=== PATIENT | female | born 1965 | race Caucasian/White ===

== ENCOUNTER 2018-08-29 22:38 | Emergency (ER) | payer OTHER ==
[~2018-08-29] VITALS: Ht 167.6 cm; Wt 112.5 kg
[2018-08-29 22:43] VITALS: BP 133/85
[2018-08-29] MEDS ORDERED: Methocarbamol 750mg tab ORAL ONE (23:15)
[2018-08-29] MEDS ORDERED: ROBAXIN-750750 MG PO (23:46)
[2018-08-29] MEDS ORDERED: IBUPROFEN600 MG ORAL (23:46)
[2018-08-29] MEDS ORDERED: LIDODERM700 M1 TOPIC (23:46)
[2018-08-29 23:52] VITALS: BP 133/85
--- NOTE | 2018-08-30 00:20 | Emergency Room Report ---
History of Present Illness General Chief Complaint: Lower Back Pain or Injury Source: Patient Present Illness HPI 52-year-old female resents ED for evaluation. Complaining of lower back pain started tonight at work while lifting heavy objects. [place] a "pop" in her lower back. Pain is dull, 8 out of 10, nonradiating. Denies any bowel or bladder incontinence. Denies any leg or motor weakness. Denies any other injuries. No other aggravating relieving factors. Denies any other associated symptoms Allergies: Coded Allergies: ACETAMINOPHEN (Verified Allergy, Severe, 08/29/18) HYDROCODONE (Verified Allergy, Severe, 08/29/18) Uncoded Allergies: SHELLFISH (Allergy, Severe, 08/29/18) Patient History Past Medical History: DM, CVA/TIA Past Surgical History: none Pertinent Family History: none Social History: Denies: smoking, alcohol use, drug use Last Menstrual Period: 6 months ago Now: No Immunizations: UTD Reviewed Nursing Documentation: PMH: Agreed; PSxH: Agreed Nursing Documentation-PMH Hx Cardiac Problems: Yes - TIA in 2013, 2014. PFA closer in Oct 2013 Hx Diabetes: Yes - Prediabetic Review of Systems All Other Systems: negative except mentioned in HPI Physical Exam Vital Signs Date Time Temp Pulse Resp B/P (MAP) Pulse Ox O2 Delivery O2 Flow Rate FiO2 08/29/18 22:41 98.6 89 20 133/85 97 Room Air 98.6 Sp02 EP Interpretation: reviewed, normal General Appearance: no apparent distress, alert, GCS 15, non-toxic Head: normocephalic Eyes: bilateral eye normal inspection, bilateral eye PERRL ENT: normal ENT inspection Neck: full range of motion Respiratory: normal inspection Cardiovascular #1: normal inspection Gastrointestinal: normal inspection Rectal: deferred Genitourinary: no vertebral tenderness Musculoskeletal: tender - paraspinal lumbar tenderness Neurologic: alert, oriented x3, responsive, motor strength/tone normal, sensory intact, speech normal Psychiatric: normal inspection Skin: normal inspection Lymphatic: normal inspection Medical Decision Making Diagnostic Impression: Primary Impression: Low back pain Qualified Codes: M54.5 - Low back pain ER Course Hospital Course 52-year-old female presents ED complaining of lower back pain after living heavy object Differential diagnoses include: pyelonephritis, kidney stone, muscle strain, Lspine fracture Clinical course Patient placed on stretcher. After initial history, physical exam reveals a middle-aged female in no acute distress. There is no vertebral body tenderness. There is some paraspinal lumbar tenderness. Negative straight leg raise. 5 out of 5 motor and both legs. No sensory deficits. I ordered motrin, robaxin, lidoderm patch for pain. Upon reassessment patient states pain has improved. Patient safely discharged with close outpatient follow-up. We'll recommend analgesic medication, modified activity at work Diagnosis - back pain Stable and discharged to home with prescription for motrin, robaxin, lidoderm patch. avoid heavy lifting. Followup with PMD. Return to ED if symptoms recur or worsen Last Vital Signs Date Time Temp Pulse Resp B/P (MAP) Pulse Ox O2 Delivery O2 Flow Rate FiO2 08/29/18 23:52 98.6 89 20 133/85 97 Room Air 98.6 Status: improved Disposition: HOME, SELF-CARE Condition: Stable Scripts Lidocaine (Lidoderm) 1 Each Adh..patch 1 PATCH TOPIC DAILY, #7 PATCH 0 Refills Patch(es) may remain in place for up to 12 hours in any 24-hour period. Prov: Abbe Spaulding MD 08/29/18 Methocarbamol* (ROBAXIN-750*) 750 Mg Tablet 750 MG PO TID, #21 TAB 0 Refills Prov: Abbe Spaulding MD 08/29/18 Ibuprofen* (MOTRIN*) 600 Mg Tablet 600 MG ORAL Q8H PRN for For Pain, #30 TAB 0 Refills Prov: Abbe Spaulding MD 08/29/18 Departure Forms: Return to Work Return to Work Date: Aug 31, 2018 Work Restrictions: No Heavy Lifting Patient Instructions: Lumbosacral Strain Abbe Spaulding MD Aug 30, 2018 00:20
== END 2018-08-29 23:57 | disposition home or self-care (01) ==
LOC: EMR 23:05
DX: M54.5 Low back pain (principal); R73.03 Prediabetes; Z86.73 Personal history of transient ischemic attack (TIA), and cerebral infarction without residual deficits; Z88.6 Allergy status to analgesic agent; Z91.013 Allergy to seafood
CPT/HCPCS: 99283

== ENCOUNTER 2019-05-14 14:04 | Emergency (ER) | payer MEDICAID, OTHER ==
[~2019-05-14] VITALS: Ht 167.6 cm; Wt 115.7 kg
[~2019-05-14 14:04] MED LIST: IBUPROFEN600 MG ORAL; LIDODERM700 M1 TOPIC; ROBAXIN-750750 MG PO
[2019-05-14] MEDS ORDERED: NKM (14:16)
--- NOTE | 2019-05-14 14:34 | Emergency Room Report ---
History of Present Illness General Chief Complaint: Generalized Weakness Source: Medical Record Present Illness HPI Patient is a 53-year-old female presented after increased generalized weakness for several months. Patient reports having generalized lethargy as well as increased difficulty with processing her thoughts. Patient states that she been having increased brain fogginess. She had prior history of CVA with resulting left-sided weakness. Patient is currently taking anticoagulant which she does not know. She denies any recent trauma. 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 She denies any difficulty with sleep. She denies any vomiting or diarrhea. She reports having some intermittent episodes of sweating. She states her last menses was approximately 6 months ago. Allergies: Coded Allergies: ACETAMINOPHEN (Verified Allergy, Severe, 08/29/18) HYDROCODONE (Verified Allergy, Severe, 08/29/18) Uncoded Allergies: SHELLFISH (Allergy, Severe, 08/29/18) Patient History Past Medical History: see triage record Last Menstrual Period: 09/21/18 Reviewed Nursing Documentation: PMH: Agreed; PSxH: Agreed Nursing Documentation-PMH Past Medical History: No History, Except For Hx Cardiac Problems: Yes - TIA in 2013, 2014. PFA closer in Oct 2013 Hx Diabetes: Yes - Prediabetic Review of Systems All Other Systems: negative except mentioned in HPI Physical Exam Vital Signs Date Time Temp Pulse Resp B/P (MAP) Pulse Ox O2 Delivery O2 Flow Rate FiO2 05/14/19 14:12 98.4 112 18 119/75 (90) 96 Room Air Sp02 EP Interpretation: reviewed, normal General Appearance: normal inspection, well appearing, no apparent distress, alert, GCS 15, obese Head: atraumatic ENT: normal ENT inspection, hearing grossly normal, normal voice Neck: normal inspection, full range of motion, supple, no bony tend Respiratory: normal inspection, lungs clear, normal breath sounds, no respiratory distress, no retraction, no wheezing Cardiovascular #1: regular rate, rhythm, edema - trace edema Gastrointestinal: normal inspection, normal bowel sounds, non tender, soft, no guarding, no hernia Genitourinary: no CVA tenderness Musculoskeletal: normal inspection, back normal, normal range of motion Neurologic: normal inspection, alert, oriented x3, responsive, vehicle insurance agent III-XII nml as tested, speech normal Psychiatric: normal inspection, judgement/insight normal, mood/affect normal Skin: normal color Medical Decision Making Diagnostic Impression: Primary Impression: Hyperglycemia Additional Impression: Episode of generalized weakness ER Course Patient presented for generalized weakness. Differential diagnosis include was not limited to elect light abnormality, hypothyroidism, congestive heart failure , myasthenia gravis among others. Because of complexity of patient's case laboratory tests were ordered.Patient's laboratory testing was unremarkable other than elevated blood sugar. Patient does not show any evidence of acute focal neurologic deficit. Patient has essentially a normal neurologic exam. patient advised dietary modification. She was advised to follow-up with her primary care physician for further evaluation and treatment. She is advised to return if she had any worsening of condition or other concerns. Patient was advised outpatient cardiac testing. Labs Test 05/14/19 14:45 White Blood Count 6.7 K/UL (4.8-10.8) Red Blood Count 5.05 M/UL (4.20-5.40) Hemoglobin 15.2 G/DL (12.0-16.0) Hematocrit 46.2 % (37.0-47.0) Mean Corpuscular Volume 92 FL (80-99) Mean Corpuscular Hemoglobin 30.0 PG (27.0-31.0) Mean Corpuscular Hemoglobin Concent 32.8 G/DL (32.0-36.0) Red Cell Distribution Width 12.2 % (11.6-14.8) Platelet Count 196 K/UL (150-450) Mean Platelet Volume 7.2 FL (6.5-10.1) Neutrophils (%) (Auto) 64.7 % (45.0-75.0) Lymphocytes (%) (Auto) 25.0 % (20.0-45.0) Monocytes (%) (Auto) 7.2 % (1.0-10.0) Eosinophils (%) (Auto) 1.7 % (0.0-3.0) Basophils (%) (Auto) 1.4 % (0.0-2.0) Sodium Level 141 MMOL/L (136-145) Potassium Level 3.7 MMOL/L (3.5-5.1) Chloride Level 105 MMOL/L (98-107) Carbon Dioxide Level 25 MMOL/L (21-32) Anion Gap 11 mmol/L (5-15) Blood Urea Nitrogen 12 mg/dL (7-18) Creatinine 0.8 MG/DL (0.55-1.30) Estimat Glomerular Filtration Rate > 60 mL/min (>60) Glucose Level 135 MG/DL (74-106) Calcium Level 9.8 MG/DL (8.5-10.1) Total Bilirubin 0.2 MG/DL (0.2-1.0) Aspartate Amino Transf (AST/SGOT) 14 U/L (15-37) Alanine Aminotransferase (ALT/SGPT) 26 U/L (12-78) Alkaline Phosphatase 75 U/L (46-116) Troponin I 0.000 ng/mL (0.000-0.056) Pro-B-Type Natriuretic Peptide 31 pg/mL (0-125) Total Protein 7.6 G/DL (6.4-8.2) Albumin 3.8 G/DL (3.4-5.0) Globulin 3.8 g/dL Albumin/Globulin Ratio 1.0 (1.0-2.7) Lipase 105 U/L (73-393) Thyroid Stimulating Hormone (TSH) 0.730 uiU/mL (0.358-3.740) Last Vital Signs Date Time Temp Pulse Resp B/P (MAP) Pulse Ox O2 Delivery O2 Flow Rate FiO2 05/14/19 14:12 98.4 112 18 119/75 (90) 96 Room Air Status: improved Disposition: HOME, SELF-CARE Condition: Stable David Burleson MD May 14, 2019 14:34
[2019-05-14 14:47] VITALS: BP 135/76
--- NOTE | 2019-05-14 14:47 | NUR ---
ED Nurse Note: PT walked in c/o nausea and weakness for one month, denies pain at this time. pt AA&ox4, gcs=15, skin warm and dry, resp even and unlabored, no active dry heaves nor vomiting noted at this time, ambulatory w/ steady gait, vss, nsr on radiation monitor, will cont monitor.
--- NOTE | 2019-05-14 14:50 | NUR ---
ED Nurse Note: TU=[id number], ERMD notified.
[2019-05-14 15:08] LABS: BASOPHILS % (AUTO) 1.4 % (0.0-2.0); EOSINOPHILS % (AUTO) 1.7 % (0.0-3.0); HEMATOCRIT 46.2 % (37.0-47.0); HEMOGLOBIN 15.2 G/DL (12.0-16.0); MEAN CORPUSCULAR VOLUME 92 FL (80-99); MONOCYTES % (AUTO) 7.2 % (1.0-10.0); NEUTROPHILS % (AUTO) 64.7 % (45.0-75.0); PLATELET COUNT 196 K/UL (150-450); RED BLOOD COUNT 5.05 M/UL (4.20-5.40); RED CELL DISTRIBUTION WIDTH 12.2 % (11.6-14.8); WHITE BLOOD COUNT 6.7 K/UL (4.8-10.8)
[2019-05-14 15:14] LABS: ANION GAP 11 mmol/L (5-15); BLOOD UREA NITROGEN 12 mg/dL (7-18); CALCIUM 9.8 MG/DL (8.5-10.1); CARBON DIOXIDE 25 MMOL/L (21-32); CHLORIDE 105 MMOL/L (98-107); CREATININE 0.8 MG/DL (0.55-1.30); POTASSIUM 3.7 MMOL/L (3.5-5.1); SODIUM 141 MMOL/L (136-145)
[2019-05-14 15:26] LABS: ALANINE AMINOTRANSFERASE 26 U/L (12-78); ALBUMIN 3.8 G/DL (3.4-5.0); ALKALINE PHOSPHATASE 75 U/L (46-116); ASPARTATE AMINO TRANSFERASE 14 U/L (15-37); BILIRUBIN,TOTAL 0.2 MG/DL (0.2-1.0)
[2019-05-14 15:47] VITALS: BP 125/70
--- NOTE | 2019-05-14 15:49 | NUR ---
ED Nurse Note: pt cleared to be d/c per ERMD, pt discharge and aftercare instruction provided, pt advised to follow up with pcp, pt education done via discussion and handout, pt verbalized understanding and agrees with plan, vss, ambulatory w/ steady gait, left w/ all belongings.
== END 2019-05-14 15:47 | disposition home or self-care (01) ==
LOC: EMR 14:48
DX: E11.65 Type 2 diabetes mellitus with hyperglycemia (principal); R53.1 Weakness; Z88.6 Allergy status to analgesic agent; Z91.013 Allergy to seafood; G81.94 Hemiplegia, unspecified affecting left nondominant side; Z79.01 Long term (current) use of anticoagulants
CPT/HCPCS: 36415; 80053; 82962; 83690; 83880; 84443; 84484; 85025; 93005; 99284